=== PATIENT | female | born 1945 | race Caucasian/White ===

== ENCOUNTER → 2019-02-24 12:55 | Outpatient (CLI) | payer MEDICARE, SELFPAY | PROVIDERS: Visit Provider Physician Assistant | DX: N39.0 Urinary tract infection, site not specified (principal); R31.9 Hematuria, unspecified | CPT/HCPCS: 87077; 87086; 87186 ==

== ENCOUNTER → 2019-09-11 09:23 | Outpatient (CLI) | payer MEDICARE, SELFPAY | PROVIDERS: Visit Provider Physician Assistant | DX: R30.0 Dysuria (principal) | CPT/HCPCS: 87077; 87086; 87186 ==

== ENCOUNTER → 2023-05-17 | Outpatient (CLI) | payer MEDICARE, SELFPAY ==
--- NOTE | 2023-05-18 22:25 | DI.NM.S_ITS ---
DATE OF SERVICE: 05/17/2023 PROCEDURE: Exercise stress test. INDICATIONS: Family history of coronary artery disease, hyperlipidemia. CARDIAC STRESS: Patient underwent exercise stress test under the supervision of an attending staff as per standard protocol. She walked on [place] protocol for 8 minutes and 0 seconds, achieved maximum heart rate of 161, which was 112% of target heart rate. Resting blood pressure 132/72 and peak blood pressure 166/90. Achieved 10.1 METs of workload. ADRIANNA -52%. No anginal symptoms. Baseline rhythm was sinus. During stress at peak, some nonspecific upsloping ST depression in inferolateral leads; however, in the immediate recovery, no convincing ischemic changes. No significant arrhythmias. CONCLUSION: Exercise stress test did not reveal any obvious convincing ischemic EKG changes. No significant arrhythmias. Excellent exercise tolerance. ADRIANNA -52%. Achieved 10.1 METs of workload. Normal blood pressure response. No anginal symptoms. Overall, low-risk exercise stress test. Patrick Myra - BIOMEDICAL SCIENTIST/shady/ec doc#: [id number]/job#: [id number] dd: 05/18/2023 17:52:00 dt: 05/18/2023 22:12:00 DICTATING /COPIES TO: Brenda Chandler MD COPIES MNE: TAJ;
== END ==
LOC: DI 07:59
PROVIDERS: PCP Family Medicine; Referring Provider Internal Medicine Cardiovascular Disease; Visit Provider Internal Medicine Cardiovascular Disease
DX: Z13.6 Encounter for screening for cardiovascular disorders; Z82.49 Family history of ischemic heart disease and other diseases of the circulatory system; E78.01 Familial hypercholesterolemia
CPT/HCPCS: 93017

== ENCOUNTER → 2024-06-04 17:29 | Outpatient (CLI) | payer MEDICARE, SELFPAY | PROVIDERS: PCP Family Medicine; Visit Provider Nurse Practitioner Family | DX: R30.0 Dysuria (principal); N94.89 Other specified conditions associated with female genital organs and menstrual cycle | CPT/HCPCS: 87077; 87086; 87186; 87210 ==

== ENCOUNTER 2025-06-19 15:15 | Outpatient (RCR) | payer MEDICARE, SELFPAY ==
--- NOTE | 2025-05-15 16:32 | PT.OPPOC ---
Physical, Occupational & Speech Therapy At [facility] Current Diagnoses Outlet dysfunction constipation (05/15/25) Pelvic muscle wasting (05/15/25) Full incontinence of feces (05/15/25) Visit Care Team Role Provider Type Jimmy Donovan DO Attending Provider Non-Staff Family Provider Primary Care Provider Referring Provider Specialty: Family Practice Address: [address] [place] [address], [id number] Email: Plan Of Care PT OP: Pelvic Health Start: 05/15/25 15:16 Freq: Status: Active Protocol: Document 05/15/25 15:17 [facility] (Rec: 05/15/25 16:06 [facility] [id number]) Out-Patient Physical Therapy Visit Information Visit Information Visit Type Initial Evaluation Visit Start Time 15:17 Visit Stop Time 16:00 Visit Number 1 Evaluation Information Evaluation Date 05/15/25 Current Condition History of Current Condition Onset Date 20 years ago Current Complaints fecal incontinence History of Current pt reports she started experiencing symptoms of small Condition amounts of fecal soiling approx 20 years ago however symptoms have slowly been increasing. Myra notes she will go weeks without any symptoms and then will have a day where she experiences a small round ball of stool leaking especially when she is working hard in the yard. Patient Questionnaires Pelvic Pain and Urgency/Frequency Patient Symptom Scale Pelvic Pain Score 3 Pelvic Floor Assessment SEMG (uV) Baseline 2 Recruitment Pattern Good Relaxation Good Holding Fair Stability of Hold Fair SEMG Stability of Good Rest Contraction Ability Voluntary Weak Contraction Voluntary Relaxation Weak Muscle Endurance ( 8 Seconds) Comments Pelvic Floor EMG evaluation reveals 16 uv average and 51.6 uv max x Comments 10 second holds and 10 contractions Physical Therapy Assessment Rehab Potential Rehabilitation Good Potential Evaluation Complexity Number of Personal 1-2 Factors/ Comorbidities Number of Body 3 Systems Impaired Clinical Evolving Presentation at Evaluation Impairments Impairments Strength,Tone Other Impairments fecal incontinence Goals 3 Impairment Pt lacks a HEP for pelvic floor strength and endurance training [employer]er Goal (LTG) Myra is independent with a HEP for pelvic floor strength and endurance training LTG Duration 8 weeks 2 Impairment Decreased endurance and strength of the pelvic floor Short Term Goal (STG Myra is able to sustain a pelvic floor contraction ) in supine x 10 seconds STG Duration 4 weeks [employer]er Goal (LTG) Myra is able to sustain a pelvic floor contraction in standing x 5 seconds or better LTG Duration 8 weeks 1 Impairment intermittent fecal incontinence Detention Goal (LTG) Myra reports a overall reduction in fecal incontinence LTG Duration 8 weeks Assessment Summary Assessment Myra is a 79 year old female with intermittent fecal incontinence symptoms that have been slowly increasing over the past 20 years. She has daily bowel movements and feels as if she is fully emptying her bowels however intermittently she will experience a small round ball of stool that leaks when she is working out in her yard or with daily activities. She feels this may be related to irritation with certain food such as spicy food. She notes she has a type 3 stool most of the time. She has this episode of fecal incontinence 1 time every 2-3 weeks. She has undergone anorectal manometry on 03/10/2025 which reveal low resting pressures, low volumes for urge to defecate, type 2 dyssynergic defecation. EMG biofeedback reveals decreased endurance of the pelvic floor with average hold at 16 uv and max contraction of 51 uv with 10 second hold time x 10 reps I also reviewed Myra's water intake as she reports she has a history of frequent UTI's. She drinks 12 oz of decaf coffee, 2-3 cups of water per day and 1 cup juice with water throughout the day. She notes that she will get into her yard work and often forget to drink. We discussed increasing water to at least 6 cups per day and paying attention to the days when she does have the small pellet of stool that leaks if she is dehydrated. Myra is a good candidate for PT working on pelvic floor endurance training with EMG biofeedback Physical Therapy Plan Frequency and Duration Frequency of Every Other Week Treatment Duration of 8 treatment (weeks) Plan of Care Start 05/15/25 Date Plan of Care End 07/10/25 Date Therapeutic Interventions Therapeutic Home Exercise Program,Neuromuscular Re-education, Interventions Patient/Caregiver Education,Self-Care/Home Management, Therapeutic Exercises Modalities Biofeedback Next Visit Focus/Plan Next Note Type Treatment Note Next Visit Plan EMG biofeedback for pelvic floor endurance training Plan of Care Dates Plan of Care Start Date 05/15/25 Plan of Care End Date 07/10/25 Electronically Signed by: Nicole Ram, PT 05/15/25 [id number] If you are in agreement with this Plan of Care, please return a signed and dated copy. I have reviewed this Plan of Care and certify that the skilled therapy services above are required to meet the patient?s needs. Physician Signature Date Printed Name and Credentials Clinical Instructor Signature Printed Name and Credentials
--- NOTE | 2025-05-21 13:30 | PT-OP ANOTE ---
I received a email from Linda saying that insurance authorization is good until 07/11/25 x 8 visits. I did call Myra today to see if she could get onto my schedule before 06/17/25 which is her next visit however she is leaving out of town so that is her first available appt. SHe did say her exercises were going well and she has not had any episodes of leakage since her first PT visit. We will keep her appt 06/17/25
--- NOTE | 2025-06-19 16:20 | PT.OTN ---
Current Diagnoses Outlet dysfunction constipation (06/19/25) Pelvic muscle wasting (06/19/25) Full incontinence of feces (06/19/25) Physical Therapy Treatment Note PT OP: Pelvic Health Start: 05/15/25 15:16 Freq: Status: Active Protocol: Document 06/19/25 15:25 [facility] (Rec: 06/19/25 16:20 [facility] [id number]) Out-Patient Physical Therapy Visit Information Visit Information Visit Type Treatment Note Visit Note pt was 10 min late to her appt Visit Start Time 15:25 Visit Stop Time 16:00 Visit Number 2 OP-PT Subjective Patient Comments Patient Comments pt reports she has done well and symptoms are really improved, she doesn't feel 100 percent but it is much better. She has only had 2-3 times where she has had a episode since she was here in May Therapeutic Exercises Supine Exercises bridges with pelvci floor activation Supine Exercise Name HEP pelvic floor long holds Reps/Minutes 10 second hold and 10 second relax x 10 reps Comments 16 uv hold with 20 uv max Self-Care/Home Management Treatment Education Other Education water intake was reviewed and Myra reports she knows she is not drinking enough, we also discussed using the vaginal estrogen cream on the posterior wall of the pelvic floor Physical Therapy Assessment Goals 3 Impairment Pt lacks a HEP for pelvic floor strength and endurance training [employer]or Goal (LTG) Myra is independent with a HEP for pelvic floor strength and endurance training LTG Duration 8 weeks 2 Impairment Decreased endurance and strength of the pelvic floor Short Term Goal (STG Myra is able to sustain a pelvic floor contraction ) in supine x 10 seconds STG Duration 4 weeks Intermediate Goal (LTG) Myra is able to sustain a pelvic floor contraction in standing x 5 seconds or better LTG Duration 8 weeks 1 Impairment intermittent fecal incontinence Intermediate Goal (LTG) Myra reports a overall reduction in fecal incontinence LTG Duration 8 weeks Assessment Summary Assessment Myra is doing better overall with symptoms with 2- 3 times since May that she has had the small pellets that have not emptied with bowel movement. We talked about increasing water intake to help with the stool as well as moving into upright positions with her pelvic floor exercises. Bridges were added and she is doing these already and we added pelvic floor isolation with her bridges Physical Therapy Plan Frequency and Duration Frequency of Every Other Week Treatment Duration of 8 treatment (weeks) Plan of Care Start 05/15/25 Date Plan of Care End 07/10/25 Date Next Visit Focus/Plan Next Note Type Treatment Note Next Visit Plan EMG biofeedback for pelvic floor endurance training, add hip hip ER strengthening next visit
--- NOTE | 2025-08-05 10:35 | PT.OPDS ---
Current Diagnoses Outlet dysfunction constipation (06/19/25) Pelvic muscle wasting (06/19/25) Full incontinence of feces (06/19/25) Visit Care Team Role Provider Type Jimmy Donovan DO Attending Provider Non-Staff Family Provider Primary Care Provider Referring Provider Specialty: Family Practice Address: [address] [place] [address], [id number] Email: Visit Number Visit Number 2 Discharge Summary PT OP: Pelvic Health Start: 05/15/25 15:16 Freq: Status: Active Protocol: Document 08/05/25 10:31 [facility] (Rec: 08/05/25 10:34 [facility] [id number]) Physical Therapy Assessment Goals 3 Impairment Pt lacks a HEP for pelvic floor strength and endurance training Intermediate Goal (LTG) Myra is independent with a HEP for pelvic floor strength and endurance training goal met LTG Duration 8 weeks 2 Impairment Decreased endurance and strength of the pelvic floor Short Term Goal (STG Myra is able to sustain a pelvic floor contraction ) in supine x 10 seconds goal met STG Duration 4 weeks Intermediate Goal (LTG) Myra is able to sustain a pelvic floor contraction in standing x 5 seconds or better good progress LTG Duration 8 weeks 1 Impairment intermittent fecal incontinence [employer] Goal (LTG) Myra reports a overall reduction in fecal incontinence Pt reports overall good improvement with decreased fecal incontinence symptoms LTG Duration 8 weeks Assessment Summary Assessment At the time of her last visit 06/19/25 Myra was doing well with her HEP. She reported overall improvement with decreased overall complaints of fecal incontinence. She also reports better formed ela overall. She only had 2-3 times in the past month that her stool was pellet shaped. At this point she is independent with her HEP and will be discharged. Physical Therapy Plan Discharge Physical Therapy Discharge Reasons Patient Request Discharge Comments Myra reports overall improvement and is independent with her HEP
== END 2025-08-05 14:29 | disposition home or self-care (01) ==
LOC: PHYS 15:15
PROVIDERS: Family Provider Family Medicine; PCP Family Medicine; Referring Provider Family Medicine; Visit Provider Family Medicine
DX: R15.9 Full incontinence of feces (principal); K59.02 Outlet dysfunction constipation; N81.84 Pelvic muscle wasting
CPT/HCPCS: 97110; 97162; 97535